=== PATIENT | male | born 1960 | race Caucasian/White ===

== ENCOUNTER 2017-04-21 12:00 | Day surgery (SDC) | payer OTHER ==
[2017-04-21] MEDS ORDERED: MIDAZOLAM 1 MG/ML 2 ML INJ ×3 (14:23)
[2017-04-21] MEDS ORDERED: FENTAnyl 50 MCG/ML VIAL (14:23)
== END 2017-04-21 15:48 | disposition home or self-care (01) ==
LOC: GIL 12:00
DX: Z12.11 Encounter for screening for malignant neoplasm of colon (principal); D12.0 Benign neoplasm of cecum; D12.5 Benign neoplasm of sigmoid colon; K64.8 Other hemorrhoids; K57.30 Diverticulosis of large intestine without perforation or abscess without bleeding; K20.9 Esophagitis, unspecified; K29.70 Gastritis, unspecified, without bleeding
CPT/HCPCS: 43239; 88305; 88312